=== PATIENT | male | born 1980 | race Caucasian/White ===

== ENCOUNTER 2017-03-06 09:29 | Emergency (ER) | payer BC ==
[2017-03-06] MEDS ORDERED: Ondansetron ODT TAB* 4 MG PO ONE (09:41)
[2017-03-06] MEDS ORDERED: Lidocaine 2% VISCOUS* 15 ML UDC PO ONE (09:41)
[2017-03-06] MEDS ORDERED: Al Hydrox/Mg Hydrox/Simet LIQ* 30 ML UDC PO ONE (09:41)
[2017-03-06] MEDS ORDERED: Ondansetron INJ* 2 MG/ML VIAL IV ONE (09:49)
[2017-03-06] MEDS ORDERED: NS 0.9% 1000 ML* 1,000 ML BOLUS ONE (09:51)
--- NOTE | 2017-03-06 10:00 | UC ---
Abdominal Pain Male HPI - HPI Summary HPI Summary: Woke about 4 hours ago with sharp epigatric pain. Has vomited 4-5 times, the last two appeared bilious. 3 loose stools. Sharp pain unrelieved. Denies SOB, chest pain, or jaw pain. - History of Current Complaint Chief Complaint: UCAbdominalPain Stated Complaint: VOMITING,STOMACH PAIN Time Seen by Provider: 03/06/17 09:38 Hx Obtained From: Patient Onset/Duration: Sudden Onset Timing: Constant Severity Initially: Severe Severity Currently: Severe Location: Epigastric Radiates: No Character: Sharp Aggravating Factor(s):: Nothing Alleviating Factor(s): Nothing Associated Signs And Symptoms: Positive: Vomiting, Diarrhea. Negative: Fever, Cough, Chest Pain, Urinary Symptoms - Allergies/Home Medications Allergies/Adverse Reactions: Allergies Allergy/AdvReac Type Severity Reaction Status Date / Time Penicillins Allergy Rash Verified 03/06/17 09:33 PMH/Surg Hx/FS Hx/Imm Hx Respiratory History: Asthma - Surgical History Surgical History: None Surgery Procedure, Year, and Place: lasix - Family History Known Family History: Negative: Cardiac Disease - Social History Alcohol Use: Occasionally Alcohol Amount: 1-2 PER WEEK Substance Use Type: None Smoking Status (MU): Never Smoked Tobacco Review of Systems Constitutional: Negative Skin: Negative Eyes: Negative ENT: Negative Respiratory: Negative Cardiovascular: Negative Gastrointestinal: Abdominal Pain, Vomiting, Diarrhea, Nausea Genitourinary: Negative Motor: Negative Neurovascular: Negative Musculoskeletal: Negative Neurological: Negative Psychological: Negative All Other Systems Reviewed And Are Negative: Yes Physical Exam Triage Information Reviewed: Yes Appearance: Well-Nourished, Pain Distress - mod -- eyes closed, lying on cot, grimacing Vital Signs: Initial Vital Signs Temp 95.7 F 03/06/17 09:34 Pulse 60 03/06/17 09:34 Resp 18 03/06/17 09:34 BP 162/85 03/06/17 09:34 Pulse Ox 100 03/06/17 09:34 Eyes: Positive: Conjunctiva Clear ENT Exam: Normal ENT: Positive: Normal ENT inspection, Hearing grossly normal, Pharynx normal, TMs normal Neck exam: Normal Neck: Positive: Supple, Nontender, No Lymphadenopathy Respiratory Exam: Normal Respiratory: Positive: Chest non-tender, Lungs clear, Normal breath sounds, No respiratory distress, No accessory muscle use Cardiovascular Exam: Normal Cardiovascular: Positive: RRR, No Murmur Abdominal Exam: Other - epigastric tenderness Abdomen Description: Positive: Soft, Guarding Neurological Exam: Normal Neurological: Positive: Alert Psychological Exam: Other - in distress Skin Exam: Normal Abd Pain Male Course/Dx - Differential Dx/Clinical Impression Provider Diagnoses: epigastric pain - Physician Notification/Consults Discussed Patient Care With: Vee Beatty Time Discussed With Above Provider: 09:52 Discharge - Discharge Plan Condition: Stable Disposition: [facility]
[2017-03-06] MEDS ORDERED: Aspirin Low Dose CHEW TAB* 81 MG ONE (10:03)
[2017-03-06 10:10] VITALS: BP 148/89
[2017-03-07] MEDS ORDERED: Aspirin Low Dose CHEW TAB* 81 MG PO ONE (09:49)
== END 2017-03-06 10:10 | disposition short-term general hospital (02) ==
LOC: UCEAST 09:29
DX: R10.13 Epigastric pain (principal); R19.7 Diarrhea, unspecified; R11.10 Vomiting, unspecified; Z88.0 Allergy status to penicillin
CPT/HCPCS: 93005; 96361; 96374; 99213; A9270-GY; G0463; J2405

== ENCOUNTER 2017-03-06 10:30 | Emergency (ER) | payer BC ==
[2017-03-06] MEDS ORDERED: Sucralfate TAB* 1 GM PO ONE (12:17)
[2017-03-06] MEDS ORDERED: Ondansetron INJ* 2 MG/ML VIAL IV ONE ×2 (12:17→13:06)
[2017-03-06] MEDS ORDERED: Pantoprazole IV* 40 MG IV ONE (12:17)
[2017-03-06 12:43] LABS: ALT 48 U/L (7-52); AST 35 U/L (13-39); Albumin 4.4 g/dL (3.2-5.2); Alkaline Phosphatase 59 U/L (34-104); Anion Gap 8 mmol/L (2-11); BUN/Creatinine Ratio 16.5 (8-20); Blood Urea Nitrogen 17 mg/dL (6-24); C Reactive Protein 4.52 mg/L (< 5.00); CO2 Carbon Dioxide 25 mmol/L (22-32); Calcium 9.2 mg/dL (8.6-10.3); Chloride 104 mmol/L (101-111); EGFR African American 105.1 (>60); EGFR Non-African American 81.7 (>60); Globulin 2.7 g/dL (2-4); Glucose 139 mg/dL (70-100); Lipase < 10 U/L (11.0-82.0); Potassium 4.2 mmol/L (3.5-5.0); Sodium 137 mmol/L (133-145); Total Protein 7.1 g/dL (6.4-8.9)
[2017-03-06 12:54] LABS: Hematocrit 45 % (42-52); Hemoglobin 14.7 g/dl (14.0-18.0); Mean Corpuscular HGB Conc 33 g/dl (31-36); Mean Corpuscular Hemoglobin 28 pg (27-31); Mean Corpuscular Volume 87 fL (80-94); Mean Platelet Volume 10 um3 (7.4-10.4); Red Blood Count 5.18 10^6/ul (4.0-5.4); Red Cell Distribution Width 15 % (10.5-15); White Blood Count 16.6 10^3/ul (3.5-10.8)
[2017-03-06] MEDS ORDERED: Meperidine SYRINGE* 50 MG/ML IV ONE (13:06)
[2017-03-06] MEDS ORDERED: NS 0.9% 1000 ML* 1,000 ML IV ONE (13:07)
--- NOTE | 2017-03-06 13:49 | RAD ---
INDICATION: Right upper quadrant pain. COMPARISON: There are no prior studies available for comparison. TECHNIQUE: Multiple real-time images of the right upper quadrant were obtained. FINDINGS: The gallbladder appear normal. No gallbladder wall thickening or pericholecystic fluid is present. No intra or extrahepatic ductal distention is present. The common bile duct measured 0.4 cm in diameter. The liver is normal in size without significant focal abnormality. The pancreas is partially obscured by overlying bowel gas. The right kidney is normal in size without evidence for hydronephrosis. IMPRESSION: NEGATIVE EXAM.
[2017-03-06 15:15] VITALS: BP 110/52
--- NOTE | 2017-03-06 16:19 | ED ---
Beatris Berrios Thomas, scribed for John Ramos MD on 03/06/17 at 1220 . Abdominal Pain/Male - HPI Summary HPI Summary: The pt is a 36 y/o M accompanied by his family and referred to the ED c/o constant epigastric abd pain that began two days ago but significantly worsened this AM at 05:30. The pain is rated 6/10. The pain is aggravated by and alleviated by nothing. The patient has treated the pain with Zofran, ASA, and IV fluids at convenient care. Pt additionally c/o nausea and black diarrhea ( ate blueberries yesterday). Pt denies hematuria, dysuria. He had one drink yesterday. The pain is unchanged by position. The last food he ate was sausage, biscuits, and gravy today at 10:00. PMHx: asthma. PSHx: none. SHx: no smoking, occasional drinking, no illicit drugs. FHx: [place] (at 40). 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 Negative: Fever, Other - NEG: hematuria, dysuria - Allergies/Home Medications Allergies/Adverse Reactions: Allergies Allergy/AdvReac Type Severity Reaction Status Date / Time Penicillins Allergy Rash Verified 03/06/17 09:33 PMH/Surg Hx/FS Hx/Imm Hx Previously Healthy: No Endocrine/Hematology History: Denies: Hx Diabetes, Hx Thyroid Disease Cardiovascular History: Denies: Hx Hypertension Respiratory History: Reports: Hx Asthma - exercise induced Denies: Hx Chronic Obstructive Pulmonary Disease (COPD) GI History: Denies: Hx Ulcer Sensory History: Reports: Hx Contacts or Glasses - WILL WEAR GLASSES DAY OF SURGERY Denies: Hx Hearing Aid Opthamlomology History: Reports: Hx Contacts or Glasses - WILL WEAR GLASSES DAY OF SURGERY - Surgical History Surgery Procedure, Year, and Place: lasix Infectious Disease History: No Infectious Disease History: Denies: Hx Clostridium Difficile, Hx Hepatitis, Hx Human Immunodeficiency Virus (HIV), Hx of Known/Suspected MRSA, Hx Shingles, Hx Tuberculosis, History Other Infectious Disease, Traveled Outside the [place] in Last 30 Days - Family History Known Family History: Positive: Other - POS: [place] (uncle at 40); NEG: GERD - Social History Alcohol Use: Occasionally Alcohol Amount: 1-2 PER WEEK Substance Use Type: Reports: None Smoking Status (MU): Never Smoked Tobacco Review of Systems Positive: Abdominal Pain - constant epigastric abd pain, onset 2 days ago but worsened today, not worsened with eating, Diarrhea - black, Nausea Negative: dysuria, hematuria All Other Systems Reviewed And Are Negative: Yes Physical Exam Triage Information Reviewed: Yes Vital Signs On Initial Exam: Initial Vitals Pulse Resp BP Pulse Ox 70 16 138/72 98 03/06/17 10:33 03/06/17 10:33 03/06/17 10:33 03/06/17 10:33 Vital Signs Reviewed: Yes Appearance: Positive: Well-Appearing, Pain Distress Skin: Positive: Warm, Skin Color Reflects Adequate Perfusion, Dry Head/Face: Positive: Normal Head/Face Inspection Eyes: Positive: Normal ENT: Positive: Normal ENT inspection Neck: Positive: Supple, Nontender Respiratory/Lung Sounds: Positive: Clear to Auscultation, Breath Sounds Present Cardiovascular: Positive: RRR Abdomen Description: Positive: Nontender, Soft Bowel Sounds: Positive: Present Musculoskeletal: Positive: Normal, Strength/ROM Intact Neurological: Positive: Normal Psychiatric: Positive: Normal, Affect/Mood Appropriate - [place] Coma Scale Coma Scale Total: 15 Diagnostics - Vital Signs Vital Signs Temp Pulse Resp BP Pulse Ox 03/06/17 11:33 98.1 F 61 16 144/84 98 03/06/17 10:33 70 16 138/72 98 - Laboratory Lab Results: Lab Results 03/06/17 03/06/17 Range/Units 10:05 10:05 WBC 16.6 H (3.5-10.8) 10^3/ul RBC 5.18 (4.0-5.4) 10^6/ul Hgb 14.7 (14.0-18.0) g/dl Hct 45 (42-52) % MCV 87 (80-94) fL MCH 28 (27-31) pg MCHC 33 (31-36) g/dl RDW 15 (10.5-15) % Plt Count 234 (150-450) 10^3/ul MPV 10 (7.4-10.4) um3 Neut % (Auto) 83.9 H (38-83) % Lymph % (Auto) 10.1 L (25-47) % Emmons % (Auto) 5.3 (1-9) % Eos % (Auto) 0.4 (0-6) % Baso % (Auto) 0.3 (0-2) % Absolute Neuts (auto) 13.9 H (1.5-7.7) 10^3/ul Absolute Lymphs (auto) 1.7 (1.0-4.8) 10^3/ul Absolute Monos (auto) 0.9 H (0-0.8) 10^3/ul Absolute Eos (auto) 0.1 (0-0.6) 10^3/ul Absolute Basos (auto) 0.1 (0-0.2) 10^3/ul Absolute Nucleated RBC 0 10^3/ul Nucleated RBC % 0 Sodium 137 (133-145) mmol/L Potassium 4.2 (3.5-5.0) mmol/L Chloride 104 (101-111) mmol/L Carbon Dioxide 25 (22-32) mmol/L Anion Gap 8 (2-11) mmol/L BUN 17 (6-24) mg/dL Creatinine 1.03 (0.67-1.17) mg/dL Est GFR ( Amer) 105.1 (>60) Est GFR (Non-Af Amer) 81.7 (>60) BUN/Creatinine Ratio 16.5 (8-20) Glucose 139 H (70-100) mg/dL Calcium 9.2 (8.6-10.3) mg/dL Total Bilirubin 1.20 H (0.2-1.0) mg/dL AST 35 (13-39) U/L ALT 48 (7-52) U/L Alkaline Phosphatase 59 (34-104) U/L Troponin I 0.00 (<0.04) ng/mL C-Reactive Protein 4.52 (< 5.00) mg/L Total Protein 7.1 (6.4-8.9) g/dL Albumin 4.4 (3.2-5.2) g/dL Globulin 2.7 (2-4) g/dL Albumin/Globulin Ratio 1.6 (1-3) Lipase < 10 L (11.0-82.0) U/L Result Diagrams: 03/06/17 10:05 03/06/17 10:05 Lab Statement: Any lab studies that have been ordered have been reviewed, and results considered in the medical decision making process. - EKG 11:07 Cardiac Rate: Bradycardia - 58 BPM EKG Interpretation: Sinus bradycardia. Nonspecific inferoir changes. - Additional Comments Diagnostic Additional Comments: Gallbladder US. Interpreted by radiologist. Impression: NEGATIVE exam. Abdominal Pain Fem Course/Dx - Course Course Of Treatment: Mr. Foley was awakened by severe subxyphoid, sharp pain at 0530 this AM. He was evaluated here with an elevated WBC and a negative GB U/S. He got a lot of relief with protonix and sucralfate and I think this was likely reflux. I will give him sucralfate for a few days. - Diagnoses Provider Diagnoses: GERD (gastroesophageal reflux disease), Esophagitis Discharge - Discharge Plan Condition: Stable Disposition: HOME Prescriptions: Sucralfate TAB* [Carafate*] 1 gm PO QID #40 tab Patient Education Materials: Gastroesophageal Reflux Disease (ED), Esophagitis (ED) Referrals: Yvon Alexandra MD [Primary Care Provider] - 3 Days The documentation as recorded by the Beatris arriaza Thomas accurately reflects the service I personally performed and the decisions made by me, John Ramos MD.
== END 2017-03-06 15:20 | disposition home or self-care (01) ==
LOC: ED 10:30
DX: K21.0 Gastro-esophageal reflux disease with esophagitis (principal); R11.0 Nausea; R19.7 Diarrhea, unspecified; R10.13 Epigastric pain
CPT/HCPCS: 36415; 76705; 80053; 83690; 84484; 85025; 86140; 93005; 96374; 96375; 99284; A9270-GY; J2310; J2405

== ENCOUNTER 2018-01-29 12:23 | Emergency (ER) | payer BC ==
[2018-01-29 12:30] VITALS: BP 111/61
--- NOTE | 2018-01-29 14:17 | UC ---
Joy Berrios Gabriel, scribed for Javi Liao MD on 01/29/18 at 1243 . Complaint Male HPI - HPI Summary HPI Summary: This patient is a 37 year old M presenting to [facility] [place] with a chief complaint of hematuria that occurred this morning s/p run. The patient rates the pain 3/10 in severity. Patient reports dysuria and increased urgency. Patient denies fever , trauma, and chills. Pt urinated this morning with no sx. - History of Current Complaint Chief Complaint: UCGU Stated Complaint: BLOOD IN URINE Time Seen by Provider: 01/29/18 12:36 Hx Obtained From: Patient Onset/Duration: Still Present Timing: Constant Severity Initially: Mild Severity Currently: Mild Pain Intensity: 3 Pain Scale Used: 0-10 Numeric Associated Signs And Symptoms: Positive: Hematuria, Dysuria - Allergies/Home Medications Allergies/Adverse Reactions: Allergies Allergy/AdvReac Type Severity Reaction Status Date / Time Penicillins Allergy Rash Verified 01/29/18 12:31 PMH/Surg Hx/FS Hx/Imm Hx Respiratory History: Asthma Other History Of: Negative For: Anticoagulant Therapy - Surgical History Surgical History: Yes Surgery Procedure, Year, and Place: lasix - Family History Known Family History: Positive: Other - POS: [place] (uncle at 40); NEG: GERD Negative: Cardiac Disease, Respiratory Disease - Social History Alcohol Use: Occasionally Alcohol Amount: 1-2 PER WEEK Substance Use Type: None Smoking Status (MU): Never Smoked Tobacco Review of Systems Constitutional: Negative - fever and chills Genitourinary: Dysuria, Hematuria, Urgency All Other Systems Reviewed And Are Negative: Yes Physical Exam - Summary Physical Exam Summary: General: well-appearing, no pain distress Skin: warm, color reflects adequate perfusion, dry Head: normal Eyes: EOMI, HORACIO ENT: normal Neck: supple, nontender Respiratory: CTA, breath sounds present Cardiovascular: RRR Abdomen: soft, mild TTP suprapubic region Bowel: present Musculoskeletal: normal, strength/ROM intact Neurological: sensory/motor intact, A&O x3 Psychological: affect/mood appropriate Triage Information Reviewed: Yes Vital Signs: Initial Vital Signs Temp 97.9 F 01/29/18 12:27 Pulse 59 01/29/18 12:27 Resp 16 01/29/18 12:27 BP 111/61 06/29/18 12:27 Pulse Ox 100 01/29/18 12:27 Vital Signs Reviewed: Yes Male Genital Exam: Positive: Normal Genitalia Complaint Male Course/Dx - Course Course Of Treatment: Medications reviewed. Allergies noted. DISCUSSED UA RESULTS WITH THE PATIENT. ENCOURAGED DRINKING ALOT OF WATER AND UROLOGY F/U; GO TO THE ED IF ANY WORSENING; PAIN, FEVER, FEELING ILL, INABILITY TO URINATE OR OTHER CONCERNS. WILL RX BACTRIM TO COVER FOR POSSIBLE PROSTATITIS UNTIL SEEN BY UROLOGY. LOW RISK STI; GC/CHLAMYDIA AND URINE CX PENDING. - Differential Dx/Diagnosis Provider Diagnoses: HEMATURIA Discharge - Sign-Out/Discharge Documenting (check all that apply): Discharge/Admit/Transfer - Discharge Plan Condition: Stable Disposition: HOME Prescriptions: Sulfamethox/Trimethoprim DS* [Bactrim DS 800/160 TAB*] 1 tab PO BID #28 tab Patient Education Materials: Hematuria (ED) Referrals: [facility] [Provider Group] Yvon Alexandra MD [Primary Care Provider] - Kavin Stearns MD [Medical Doctor] - Ruben Heard MD [Medical Doctor] - Additional Instructions: FOLLOW UP WITH UROLOGY FOR FURTHER EVALUATION OF THE BLOOD IN YOUR URINE. DRINK EXTRA WATER. GET RECHECKED FOR ANY WORSENING OF YOUR CONDITION; FEVER, YOU FEEL ILL, YOU ARE UNABLE TO URINATE, OR QUESTIONS OR CONCERNS. - Billing Disposition and Condition Condition: STABLE Disposition: Home The documentation as recorded by the Joy arriaza Gabriel accurately reflects the service I personally performed and the decisions made by me, Javi Liao MD.
--- NOTE | 2018-02-01 17:24 | UC ---
- Progress Note Progress Note: 02/01/2018 Gonorrhea and chlamydia: negative No change Discharge - Sign-Out/Discharge Documenting (check all that apply): Discharge/Admit/Transfer - Discharge Plan Condition: Stable Disposition: HOME Prescriptions: Sulfamethox/Trimethoprim DS* [Bactrim DS 800/160 TAB*] 1 tab PO BID #28 tab Patient Education Materials: Hematuria (ED) Referrals: [facility] [Provider Group] Yvon Alexandra MD [Primary Care Provider] - Kavin Stearns MD [Medical Doctor] - Ruben Heard MD [Medical Doctor] - Additional Instructions: FOLLOW UP WITH UROLOGY FOR FURTHER EVALUATION OF THE BLOOD IN YOUR URINE. DRINK EXTRA WATER. GET RECHECKED FOR ANY WORSENING OF YOUR CONDITION; FEVER, YOU FEEL ILL, YOU ARE UNABLE TO URINATE, OR QUESTIONS OR CONCERNS. - Billing Disposition and Condition Condition: STABLE Disposition: Home
== END 2018-01-29 13:12 | disposition home or self-care (01) ==
LOC: UCEAST 12:23
DX: R31.9 Hematuria, unspecified (principal); Z88.0 Allergy status to penicillin
CPT/HCPCS: 81003; 87086; 87491; 87591; 99212; G0463